=== PATIENT | female | born 1980 | race Caucasian/White ===

== ENCOUNTER 2016-12-06 13:11 | Emergency (ER) | payer BC, OTHER ==
[~2016-12-06 13:11] MED LIST: ALPR-411 PO; FRCT/ PO; MECL1TAB42 PO; OMEP40CA36 PO
[2016-12-06 13:14] VITALS: TEMP 36.7; Ht 170.2 cm
--- NOTE | 2016-12-06 13:43 | EMERGENCY ROOM VISIT NOTE ---
ED Visit Note First contact with patient: 13:20 CHIEF COMPLAINT: Ankle pain HISTORY OF PRESENT ILLNESS: This 36 old female patient presents to the emergency department ambulatory after sustaining an injury to the right ankle and foot with a twisting, inversion motion when she twisted her ankle while painting in her garage this morning. Complains of moderate swelling and pain. The patient complains of pain along the outside of the ankle. The patient does have pain of the foot. The patient rates the pain as sharp and 6/10. There was no audible pop. The patient is able to bear weight on the foot. Constant pain, worse with movement, weight bearing, and the dependent position. No knee pain, the patient is able to move their toes. No numbness or weakness of the foot, no laceration. The patient has not had a previous injury to this ankle. The patient has taken nothing for the pain. The patient denies any other injury. REVIEW OF SYSTEMS: A 6 system review of systems was completed with positives and pertinent negatives listed in the HPI. ALLERGIES: Tramadol, iodinated contrast agents MEDICATIONS: Omeprazole, Xanax, meclizine, Fioricet PMH: Migraines, GERD SOCIAL HISTORY: The patient lives locally. She is a smoker. She is employed at [employer] PHYSICAL EXAM: Vital Signs: Reviewed Nurse's notes, vital signs stable. GENERAL : This is a 36-year-old female, no acute distress, but appears in pain, well- developed, well-nourished. MENTAL STATUS: Alert, oriented to person place and time, and cooperative. MUSCULOSKELETAL: The right ankle is swollen and tender over the lateral malleolus, but the skin is intact and there is no ligamentous instability. There is mild fifth metatarsal tenderness. There is no tenderness over the rest of the foot. There is mild tenderness to palpation over the Achilles. There is no step-off. There is no calf or tibia/fibular tenderness. There is no visual deformity. The foot and toes are warm and well- perfused. Dorsalis pedis pulse 2+. Sensation to pain and light touch is intact. Capillary refill less than 2 seconds. EMERGENCY DEPARTMENT COURSE: I examined the patient. X-rays of the ankle and foot were reviewed by myself and read by radiology and reveal no fracture dislocation. A gel splint was applied to the ankle under my direction and the position was satisfactory. Neurovascular status was rechecked and intact. The patient was instructed on the use of crutches. The patient was discharged home in good condition. RIGHT ANKLE 3 VIEWS CLINICAL HISTORY: Right ankle pain. FINDINGS: 3 views of the right ankle are obtained. No prior studies are available for comparison at the time of dictation. The skeletal structures are well mineralized. No fracture is seen. The ankle mortise is intact. Mild degenerative spurring is noted along the dorsal aspect of the tarsal bones. There is a joint effusion. Soft tissue swelling is present around ankle. IMPRESSION: Soft tissue swelling and joint effusion. No fracture is identified. RIGHT FOOT 3 VIEWS CLINICAL HISTORY: Right foot pain. FINDINGS: 3 views of the right foot are obtained. No prior studies are available for comparison at the time of dictation. The skeletal structures are well mineralized. No fracture is seen. Minimal degenerative change is noted at the first metatarsophalangeal joint. The overlying soft tissues are within normal limits. Mild soft tissue swelling is seen around the ankle. IMPRESSION: No acute bony abnormality is identified in the right foot. Problem List Medical Problems: (1) Cholecystectomy Status: Resolved (2) Depression Status: Chronic (3) Gastroesophageal reflux disease Status: Chronic (4) PERSONAL HISTORY OF PEPTIC ULCER DISEASE Status: Chronic (5) Tonsillectomy Status: Resolved Current/Historical Medications Scheduled Omeprazole (Prilosec), 40 MG PO BID Scheduled PRN Acetamin/Butalbital/Caffeine (Fioricet), 1 TAB PO Q4H PRN for Migraine Alprazolam (Xanax), 0.5 MG PO Q6H PRN for Anxiety Meclizine Hcl (Meclizine Hcl), 25 MG PO TID PRN for Dizziness or Vertigo Allergies Coded Allergies: Tramadol (Unverified Allergy, Severe, HIVES, 04/11/16) Iodinated Diagnostic Agents (Verified Allergy, Unknown, HIVES, 04/11/16) Vital Signs Date Time Temp Pulse Resp B/P Pulse Ox O2 Delivery O2 Flow Rate FiO2 12/06/16 14:35 72 16 114/73 98 12/06/16 13:14 36.7 100 18 117/75 97 Room Air Departure Information Impression Primary Impression: Ankle sprain Dispostion Home / Self-Care Condition GOOD Referrals Bronwyn Hodges A. PAdriana (PCP) Rony Garsia D.O. Forms HOME CARE DOCUMENTATION FORM, IMPORTANT VISIT INFORMATION, Work Instructions Return To Work: 3 days Patient Instructions Ankle Sprain, [employer] Additional Instructions Ice and elevate ankle for swelling and pain. Crutches with weight bearing as tolerated. Wear the splint 7-14 days or until pain subsides. Ibuprofen 600 mg every 6 hrs for pain. If ankle has not improved within 5-7 days, follow-up family doctor or orthopedic surgeon for further evaluation and management.
--- NOTE | 2016-12-06 14:03 | DIAGNOSTIC IMAGING REPORT ---
RIGHT ANKLE 3 VIEWS CLINICAL HISTORY: Right ankle pain. FINDINGS: 3 views of the right ankle are obtained. No prior studies are available for comparison at the time of dictation. The skeletal structures are well mineralized. No fracture is seen. The ankle mortise is intact. Mild degenerative spurring is noted along the dorsal aspect of the tarsal bones. There is a joint effusion. Soft tissue swelling is present around ankle. IMPRESSION: Soft tissue swelling and joint effusion. No fracture is identified. Electronically signed by: Owen Johnson M.D. 12/06/2016 2:01 PM Dictated Date/Time: 12/06/2016 2:01 PM
--- NOTE | 2016-12-06 14:06 | DIAGNOSTIC IMAGING REPORT ---
RIGHT FOOT 3 VIEWS CLINICAL HISTORY: Right foot pain. FINDINGS: 3 views of the right foot are obtained. No prior studies are available for comparison at the time of dictation. The skeletal structures are well mineralized. No fracture is seen. Minimal degenerative change is noted at the first metatarsophalangeal joint. The overlying soft tissues are within normal limits. Mild soft tissue swelling is seen around the ankle. IMPRESSION: No acute bony abnormality is identified in the right foot. Electronically signed by: Owen Johnson M.D. 12/06/2016 2:04 PM Dictated Date/Time: 12/06/2016 2:04 PM
[2016-12-06 14:35] VITALS: BP 114/73; PULSE 72; O2SAT 98
== END 2016-12-06 14:36 | disposition home or self-care (01) ==
LOC: C.EDB 13:12 → C.EDD 14:36
DX: S93.401A Sprain of unspecified ligament of right ankle, initial encounter (principal); X50.1XXA Overexertion from prolonged static or awkward postures, initial encounter; Y92.015 Private garage of single-family (private) house as the place of occurrence of the external cause; G43.909 Migraine, unspecified, not intractable, without status migrainosus; K21.9 Gastro-esophageal reflux disease without esophagitis; K27.9 Peptic ulcer, site unspecified, unspecified as acute or chronic, without hemorrhage or perforation; F32.9 Major depressive disorder, single episode, unspecified; F17.210 Nicotine dependence, cigarettes, uncomplicated; Z79.899 Other long term (current) drug therapy